=== PATIENT | female | born 1980 ===

== ENCOUNTER → 2024-12-20 | Outpatient (CLI) | payer OTHER ==
[2024-12-20 17:24] LABS: Basophils # (M) 0 X 10*3/uL (0.00-0.10); Eosinophils # (M) 0.57 X 10*3/uL (0.04-0.35); HCT 42.6 % (37.2-46.3); HGB 14.1 g/dL (12.0-15.0); Lymphocytes # (M) 3.97 X 10*3/uL (0.90-5.00); MCH 30.3 pg (27.0-32.0); MCHC 33.1 g/dL (32.0-37.0); MCV 91.4 FL (80.0-97.0); Mean Platelet Volume 9.6 FL (9.5-12.2); Monocytes # (M) 0.47 X 10*3/uL (0.20-1.00); NRBC Per 100 WBC 0.04 X 10*3/uL (0.00-0.01); Neutrophils # (M) 4.44 X 10*3/uL (1.80-7.70); Neutrophils % (M) 47 %; Platelet Count 204 X 10*3/uL (140-440); RBC 4.66 X 10*6/uL (4.10-5.20); RDW 13.3 % (11.5-14.5); WBC 9.45 X 10*3/uL (4.50-10.00)
[2024-12-20 20:19] LABS: BUN/Creat Ratio 18.14 Ratio (12.00-20.00); Blood Urea Nitrogen 12.7 mg/dL (9.0-27.0); Glucose 87 mg/dL (70-110); Testosterone <10.00 ng/dL (9.01-47.94)
[2024-12-20 20:20] LABS: ALT 18 U/L (8-44); AST 17 U/L (13-35); Albumin 4.8 g/dL (3.8-4.9); Albumin/Globulin Ratio 1.41 Ratio (1.60-3.17); Alkaline Phosphatase 72 U/L (41-126); Calcium 10.2 mg/dL (8.7-10.3); Carbon Dioxide 22.4 mmol/L (21.6-31.8); Chloride 102 mmol/L (96-109); Globulin 3.4 g/dL (1.6-3.3); Potassium 4.2 mmol/L (3.5-5.5); Sodium 139 mmol/L (135-145); Total Bilirubin 0.3 mg/dL (0.3-1.2); Total Protein 8.2 g/dL (6.2-8.2)
[2024-12-20 20:28] LABS: Estradiol <20.0 pg/mL
[2024-12-20 20:34] LABS: Follicle Stimulating Hormone 48.6 mIU/mL; Luteinizing Hormone 26.6 mIU/mL
== END | disposition home or self-care (01) ==
LOC: LABWHC1 11:34
PROVIDERS: ATTEND Family Medicine
DX: N95.1 Menopausal and female climacteric states (principal); E66.9 Obesity, unspecified; R73.01 Impaired fasting glucose; Z86.2 Personal history of diseases of the blood and blood-forming organs and certain disorders involving the immune mechanism
CPT/HCPCS: 36415; 80053; 82670; 83001; 83002; 83036; 84403; 85025